=== PATIENT | female | born 1975 | race Caucasian/White ===

== ENCOUNTER 2017-04-21 15:17 | Emergency (ER) | payer MEDICAID | END 2017-04-21 18:11 | disposition home or self-care (01) | LOC: E/R 15:17 | DX: J20.9 Acute bronchitis, unspecified (principal) | CPT/HCPCS: 99284; Z7502 ==

== ENCOUNTER 2018-01-17 13:02 | Emergency (ER) | payer SELFPAY, MEDICAID | END 2018-01-17 17:00 | disposition left against medical advice (07) | LOC: FTE 13:02 | DX: Z53.21 Procedure and treatment not carried out due to patient leaving prior to being seen by health care provider (principal) ==